=== PATIENT | male | born 2000 | race Caucasian/White ===

== ENCOUNTER 2022-02-01 06:08 | Inpatient (IN) | payer BC ==
[2022-01-29 15:08] LABS: BASOPHILS % (AUTO) 0.2 % (0-1); EOSINOPHILS # (AUTO) 0.1 X10'3 (0-0.9); EOSINOPHILS % (AUTO) 1.4 % (0-6); LYMPHOCYTES # (AUTO) 1.4 X10'3 (1.1-4.8); MEAN CORPUSCULAR HEMOGLOBIN 32.7 PG (27.0-31.0); MEAN CORPUSCULAR HGB CONC 34.9 g/dL (33.0-36.5); MEAN CORPUSCULAR VOLUME 93.7 FL (78-98); MONOCYTES # (AUTO) 0.4 X10'3 (0-0.9); NEUTROPHILS # (AUTO) 5.4 X10'3 (1.8-7.7); NEUTROPHILS % (AUTO) 73.4 % (42-75); PRE OP HEMATOCRIT 45.9 % (42.0-52.0); PRE OP PLATELET COUNT 254 X10'3 (140-440)
[2022-01-29 15:10] LABS: CLARITY,URINE CLEAR (Clear); COLOR,URINE YELLOW (Yellow); GLUCOSE, URINE NEGATIVE (Neg); KETONES,URINE NEGATIVE (Neg); LEUKOCYTE ESTERASE ,URINE NEGATIVE (Neg); NITRITES, URINE NEGATIVE (Neg); OCCULT BLOOD,URINE NEGATIVE (Neg); PROTEIN,URINE NEGATIVE (Neg); UROBILINOGEN,URINE 0.2 E.U/dL (0.2-1.0)
[2022-01-29 15:21] LABS: PRE OP INR 1.1 INR; PRE OP PROTIME 11.1 SECONDS (9.0-12.0); UA COLLECTION TYPE CLN CATCH MIDSTREAM
[2022-02-01] VITALS (24 sets, daily range): BP systolic 108–189; BP diastolic 71–95
[~2022-02-01] VITALS: Ht 177.8 cm; Wt 90.7 kg
[~2022-02-01 06:08] MED LIST: NO HOME MEDS; famotidine 20mg tablet PO ONE; ringers solution, lacted 1,000 ML IV SCH
[2022-02-01] MEDS ORDERED: midazolam 1 mg/ML 2ml injection ONE (08:08)
[2022-02-01] MEDS ORDERED: fentaNYL /PF 50mcg/ml 5ml ampule ONE (08:09)
[2022-02-01] MEDS ORDERED: meperidine/PF 25mg/ml syringe ONE (11:04)
[2022-02-01] MEDS ORDERED: morphine 4 MG/ML inj SYRINge IV PRN ×2 (11:15→11:35)
[2022-02-01] MEDS ORDERED: ondansetron/PF 4mg/2ml inj IV PRN ×2 (11:15→11:35)
[2022-02-01] MEDS ORDERED: morphine 2 MG/ML inj. syringe IV PRN ×2 (11:15→11:35)
[2022-02-01] MEDS ORDERED: naloxone 0.4 mg/ml inj IV PRN (11:15)
[2022-02-01] MEDS ORDERED: albuterol 2.5 MG/3 ML nebule NEB PRN (11:15)
[2022-02-01] MEDS ORDERED: metoclopramide 5 mg/ml inj IV PRN (11:15)
[2022-02-01] MEDS ORDERED: HYDROcodone/acetaminophen 10/325mg tab PO PRN ×2 (11:15)
[2022-02-01] MEDS ORDERED: morphine/NS 1 mg/ml 50ml CADD 50 ML IV SCH (11:15)
[2022-02-01] MEDS ORDERED: FENTANYL CITRATE/PF 50 MCG/1 ML VIAL ONE (11:20)
--- NOTE | 2022-02-01 11:23 | NUR ---
Received from OR via BED IN STABLE CONDITION , accompanied by Anesthesiologist and DEHORNER report given by DEHORNER AND Anesthesiolgist. Addendum: 02/01/22 at 1238 by Jennifer Bose RN Amended: Links added.
[2022-02-01] MEDS ORDERED: proCHLORperazine 10 MG/2 ml inj IV PRN (11:35)
[2022-02-01] MEDS ORDERED: meperidine/PF 25mg/ml syringe IV PRN ×2 (11:35)
[2022-02-01] MEDS ORDERED: ringers solution, lacted 1,000 ML IV SCH (11:35)
[2022-02-01] MEDS: meperidine/PF 25mg/ml syringe IV PRN ×2 (11:46→12:01)
[2022-02-01] MEDS ORDERED: glycopyrrolate 0.2mg/ml inj ONE (11:50)
[2022-02-01] MEDS ORDERED: ondansetron/PF 4mg/2ml inj ONE (11:50)
[2022-02-01] MEDS ORDERED: neostigmine methylsulfate 1 MG/ML 10ml vial ONE (11:50)
[2022-02-01] MEDS ORDERED: dexamethasone sod phosphate 4mg/ml inj. ONE (11:50)
[2022-02-01] MEDS ORDERED: propofol inj 20 ML IV ONE (11:50)
[2022-02-01] MEDS ORDERED: LIDOcaine 2% (20mg/ml) 5ml vial ONE (11:50)
[2022-02-01] MEDS ORDERED: ePHEDrine 50MG/ML INJ. ONE (11:50)
[2022-02-01] MEDS ORDERED: acetaminophen 1,000mg/100ml IV 100 ML IV ONE (11:50)
[2022-02-01] MEDS ORDERED: rocuronium 10mg/ml inj IV ONE (11:50)
[2022-02-01 11:54] LABS: BASOPHILS % (AUTO) 0.2 % (0-1); EOSINOPHILS % (AUTO) 0.2 % (0-6); HEMATOCRIT 42.9 % (42.0-52.0); HEMOGLOBIN 15.1 g/dl (14.0-17.9); LYMPHOCYTES # (AUTO) 1.1 X10'3 (1.1-4.8); LYMPHOCYTES % (AUTO) 9.3 % (21-51); MEAN CORPUSCULAR HEMOGLOBIN 32.5 PG (27.0-31.0); MEAN CORPUSCULAR HGB CONC 35.2 g/dL (33.0-36.5); MEAN CORPUSCULAR VOLUME 92.4 FL (78-98); MEAN PLATELET VOLUME 8.8 FL (7.4-10.4); MONOCYTES # (AUTO) 0.2 X10'3 (0-0.9); NEUTROPHILS # (AUTO) 10.4 X10'3 (1.8-7.7); NEUTROPHILS % (AUTO) 88.3 % (42-75); PLATELET COUNT 200 X10'3 (140-440); RED BLOOD COUNT 4.64 X10'6 (4.70-6.10); WHITE BLOOD COUNT 11.8 X10'3 (4.5-11.0)
[2022-02-01 12:02] LABS: ALBUMIN 3.9 G/DL (3.4-5.0); ANION GAP 10 (8-16); BLOOD UREA NITROGEN 14 MG/DL (7-18); BUN/CREATININE RATIO 15.4 (5.4-32.0); CALCIUM 8.6 MG/DL (8.5-10.1); CHLORIDE 105 MMOL/L (99-107); CREATININE 0.91 MG/DL (0.60-1.10); GLUCOSE 157 MG/DL (70-104); POTASSIUM 3.7 MMOL/L (3.5-5.1); SODIUM 141 MMOL/L (135-145); TOTAL CARBON DIOXIDE 25.8 MMOL/L (24-32); eGFR > 90 ML/MIN
--- NOTE | 2022-02-01 13:53 | NUR ---
PATIENT DISCHARGED FROM PACU IN STABLE CONDITION AFTER REPORT GIVEN TO RN TAKING OVER PATIENTS CARE. PATIENT TRANSFERRED TO ROOM 301 VIA BED WITH JAMEEL AND RN. Addendum: 02/01/22 at 1401 by Jennifer Bose RN Amended: Links added.
[2022-02-01] MEDS ORDERED: albuterol 2.5 MG/3 ML nebule NEB SCH (15:00)
[2022-02-01] MEDS: ketorolac tromethamine 15mg/ml inj. IV SCH (20:38)
[2022-02-01] MEDS: docusate sod 100mg capsule PO SCH (20:38)
[2022-02-01] MEDS: gabapentin 300mg capsule PO SCH (20:39)
[2022-02-01] MEDS: ceFAZolin 1GM/D5W- ADD-VANTAGE 50 ML IV SCH (23:59)
[2022-02-02] MEDS: ceFAZolin 1GM/D5W- ADD-VANTAGE 50 ML IV SCH (00:01)
[2022-02-02 02:00] VITALS: BP 114/70
[2022-02-02] MEDS: ketorolac tromethamine 15mg/ml inj. IV SCH ×2 (02:00→08:29)
[2022-02-02 05:39] LABS: BASOPHILS % (AUTO) 0.1 % (0-1); EOSINOPHILS % (AUTO) 0.1 % (0-6); HEMATOCRIT 39.3 % (42.0-52.0); HEMOGLOBIN 13.7 g/dl (14.0-17.9); LYMPHOCYTES # (AUTO) 1.2 X10'3 (1.1-4.8); LYMPHOCYTES % (AUTO) 8.8 % (21-51); MEAN CORPUSCULAR HEMOGLOBIN 32.7 PG (27.0-31.0); MEAN CORPUSCULAR HGB CONC 34.9 g/dL (33.0-36.5); MEAN CORPUSCULAR VOLUME 93.8 FL (78-98); MONOCYTES # (AUTO) 1.3 X10'3 (0-0.9); MONOCYTES % (AUTO) 9.3 % (2-12); NEUTROPHILS # (AUTO) 11.3 X10'3 (1.8-7.7); NEUTROPHILS % (AUTO) 81.7 % (42-75); PLATELET COUNT 219 X10'3 (140-440); RED CELL DISTRIBUTION WIDTH 13.1 % (11.5-14.5); WHITE BLOOD COUNT 13.8 X10'3 (4.5-11.0)
[2022-02-02 05:51] LABS: ALANINE AMINOTRANSFERASE 25 U/L (12-78); ALBUMIN 3.6 G/DL (3.4-5.0); ALKALINE PHOSPHATASE 66 IU/L (20-180); ANION GAP 11 (8-16); ASPARTATE AMINO TRANSFERASE 22 U/L (10-37); BILIRUBIN,TOTAL 0.9 MG/DL (0.1-1.0); BLOOD UREA NITROGEN 15 MG/DL (7-18); BUN/CREATININE RATIO 15.3 (5.4-32.0); CALCIUM 8.9 MG/DL (8.5-10.1); CHLORIDE 103 MMOL/L (99-107); CREATININE 0.98 MG/DL (0.60-1.10); GLUCOSE 122 MG/DL (70-104); MAGNESIUM 1.9 MG/DL (1.5-2.4); POTASSIUM 3.8 MMOL/L (3.5-5.1); SODIUM 142 MMOL/L (135-145); TOTAL CARBON DIOXIDE 27.7 MMOL/L (24-32); TOTAL PROTEIN 7.2 G/DL (6.4-8.2); eGFR > 90 ML/MIN
[2022-02-02 06:00] VITALS: BP 140/70
--- NOTE | 2022-02-02 06:35 | NUR ---
Patient in room PCU 3018A. I have received report from ASUNCION HUNT and had the opportunity to ask questions and assume patient care.
[2022-02-02] MEDS: gabapentin 300mg capsule PO SCH (08:36)
[2022-02-02] MEDS: docusate sod 100mg capsule PO SCH (08:36)
[2022-02-02] MEDS ORDERED: HYDR-3972 PO (08:36)
[2022-02-02] MEDS: CADD PCA waste documentation MC PRN ×2 (08:59→09:00)
[2022-02-02 11:00] VITALS: BP 126/72
[2022-02-02 11:38] LABS: ALBUMIN 3.6 G/DL (3.4-5.0); ANION GAP 7 (8-16); BLOOD UREA NITROGEN 14 MG/DL (7-18); BUN/CREATININE RATIO 17.1 (5.4-32.0); CALCIUM 8.7 MG/DL (8.5-10.1); CHLORIDE 102 MMOL/L (99-107); CREATININE 0.82 MG/DL (0.60-1.10); GLUCOSE 125 MG/DL (70-104); POTASSIUM 3.2 MMOL/L (3.5-5.1); SODIUM 137 MMOL/L (135-145); TOTAL CARBON DIOXIDE 28.1 MMOL/L (24-32); eGFR > 90 ML/MIN
[2022-02-02] MEDS ORDERED: potassium Cl 20 mEq SR tablet PO STA (11:45)
--- NOTE | 2022-02-02 12:12 | NUR ---
DC INSTRUCTIONS GIVEN TO PT AND PT DAD. IV REMOVED WITH NO COMPLICATIONS, BANDAGE APPLIED. TELE MONITOR REMOVED AND RETURNED TO TELE BOX. PT DRESSED SELF AND WALKED DOWN TO PRIVATE VEHICLE WITH DAD.
== END 2022-02-02 12:00 | disposition home or self-care (01) | DRG 804 ==
LOC: PAS IN 06:08 → EDBD 07:30 → PCU 3S 13:55
PROVIDERS: ADMIT Thoracic Surgery (Cardiothoracic Vascular Surgery); ATTEND Thoracic Surgery (Cardiothoracic Vascular Surgery)
PROC: 0WJC4ZZ Inspection of Mediastinum, Percutaneous Endoscopic Approach (ICD-10-PCS; 2022-02-01)
PROC: 07B74ZX Excision of Thorax Lymphatic, Percutaneous Endoscopic Approach, Diagnostic (ICD-10-PCS; principal; 2022-02-01 08:01)
DX: R59.0 Localized enlarged lymph nodes (principal); V89.2XXA Person injured in unspecified motor-vehicle accident, traffic, initial encounter; Y93.89 Activity, other specified; Y92.89 Other specified places as the place of occurrence of the external cause; Y99.8 Other external cause status
CPT/HCPCS: Z7506; Z7508; 36415; 71045; 71046; 80048; 80053; 81003; 82948; 83735; 85025; 85610; 85730; 86885; 86900; 86901; 87635; 93005; A4215; A4618; A6258; A6449; A7000; G0378; J0131; J0690; J1100; J1885; J2175; J2250; J2270; J2405; J2704; J2710; J3010; J3490; J7030; J7120